=== PATIENT | female | born 1975 | race Caucasian/White ===

== ENCOUNTER 2020-11-09 12:07 | Emergency (ER) | payer OTHER ==
[~2020-11-09] VITALS: Ht 165.1 cm; Wt 77.1 kg
[2020-11-09 13:40] LABS: BASOPHILS # (AUTO) 0.1 K/uL (0.00-0.22); BASOPHILS % (AUTO) 0.6 % (0.0-2.0); HEMATOCRIT 39.7 % (36-48); HEMOGLOBIN 13.1 g/dL (12.0-16.0); LYMPHOCYTES % (AUTO) 15.1 % (20.5-51.1); MEAN CORPUSCULAR HEMOGLOBIN 29 pg (27-31); MEAN CORPUSCULAR HGB CONC 33 g/dL (33-37); MEAN CORPUSCULAR VOLUME 88.2 fL (80-94); MONOCYTES # (AUTO) 1.4 K/uL (0.8-1.0); MONOCYTES % (AUTO) 6.9 % (1.7-9.3); NEUTROPHILS # (AUTO) 15.4 K/uL (1.8-7.7); NEUTROPHILS % (AUTO) 77.4 % (42.2-75.2); PLATELET COUNT (AUTO) 624 K/uL (140-450); WHITE BLOOD COUNT (AUTO) 19.9 K/uL (4.8-10.8)
[2020-11-09 13:59] VITALS: BP 118/62
--- NOTE | 2020-11-09 14:05 | NUR ---
PATIENT PLACED IN ER-13 BY [facility] AT THIS TIME.
[2020-11-09 14:09] LABS: ALBUMIN 3.4 g/dL (3.4-5.0); ANION GAP 16.5 (8-16); ASPARTATE AMINOTRANSFERASE 28 U/L (15-37); CARBON DIOXIDE 24.1 mmol/L (21-32); CHLORIDE 100 mmol/L (98-107); CREATININE 0.7 mg/dL (0.6-1.3); GFR ARICAN-AMERICAN 117 mL/min (>90); GLUCOSE 105 mg/dL (74-106); POTASSIUM 4.6 mmol/L (3.5-5.1); SALICYLATE < 2.8 mg/dL (2.8-20.0); SODIUM SERUM 136 mmol/L (136-145); TOTAL BILIRUBIN 0.5 mg/dL (0.0-1.0); UREA NITROGEN, BLOOD 17 mg/dL (7-18)
[2020-11-09 14:10] LABS: ACETAMINOPHEN < 0.5 ug/ml (10-30)
--- NOTE | 2020-11-09 14:10 | NUR ---
SPOKE TO MARILIN @ [phone] REGARDING PATIENT, STATES THAT PATIENT WAS FOUND LAYING ON FLOOR UNCONSCIOUS AND WAS DISCHARGED FROM [place] FOR COVID PNEUMONIA RECENTLY. DR LOPEZ MADE AWARE
--- NOTE | 2020-11-09 16:25 | NUR ---
Gave report to DEANNA Madrigal for pending admission to [facility] for subacute stroke with Dr. Deutsch.
--- NOTE | 2020-11-09 16:27 | NUR ---
Patient to be transferred to [facility]. Is being transferred due to equipment or services not available at this facility. Receiving facility has accepting physician and available space. ER physician has signed transfer form. Patient or responsible green party has agreed to transfer and signed form. Patient belongings inventoried and will be sent with patient. Copy of nursing notes, lab reports, EKG, Physicians Orders and X-rays to be sent with patient. Report called to DEANNA Madrigal at receiving facility. [facility] ambulance service has been called for transfer. ETA is 25minutes.
[2020-11-09 17:07] LABS: PROTHROMBIN TIME 10.3 secs (10.8-13.4)
== END 2020-11-09 16:27 | disposition swing bed, planned readmission (89) ==
LOC: MED 12:07
DX: I63.512 Cerebral infarction due to unspecified occlusion or stenosis of left middle cerebral artery (principal); U07.1 COVID-19; J12.82 Pneumonia due to coronavirus disease 2019
CPT/HCPCS: 36415; 70450; 70496; 70498; 71045; 80053; 84484; 85025; 85610; 85730; 93005; 99291; G0480; G0482; Q9967

== ENCOUNTER 2021-12-30 20:01 | Emergency (ER) | payer OTHER ==
[~2021-12-30] VITALS: Ht 157.5 cm; Wt 70.8 kg
--- NOTE | 2021-12-30 20:01 | NUR ---
PT [facility]. TAKEN TO BED 9
[2021-12-30 20:05] VITALS: BP 147/71
--- NOTE | 2021-12-30 20:10 | NUR ---
patient ara from home c/o aloc s/p szx that lasted 3mins at around 1930. witnessed by son. EMS arrived and pt was postictal. patient has right facial droop, right sided weakness in the arms and legs, difficulty expressing self, aphasic. pt AAOx3- confused. per family pt is not on any antiszx medication and pt normally aaox4 and has the right sided defecits. pmh: cva 2020 (right sided weakness), hyperlipidemia, szx, depression nka
--- NOTE | 2021-12-30 20:14 | NUR ---
Dr. Marroquin examining patient.
--- NOTE | 2021-12-30 20:22 | NUR ---
CODE BRAIN INITIATED PER DR. LOPEZ. RADIOLOGY NOTIFIED
--- NOTE | 2021-12-30 20:24 | NUR ---
PT TAKEN TO CT
--- NOTE | 2021-12-30 20:34 | NUR ---
PT RETURN FROM CT
--- NOTE | 2021-12-30 20:45 | NUR ---
ATTEMPTED TO START AN IV TWICE. NO SUCCESS AT THIS TIME.
--- NOTE | 2021-12-30 20:47 | NUR ---
TELE NEURO SET UP FOR PATIENT IN BED 9. AWATING FOR MD CALL.
--- NOTE | 2021-12-30 20:49 | NUR ---
TELENEURO REQUEST INITIATED PER DR. LOPEZ. HEAD CT FAXED
[2021-12-30 20:56] LABS: BASOPHILS # (AUTO) 0.1 K/uL (0.00-0.22); BASOPHILS % (AUTO) 0.8 % (0.0-2.0); EOSINOPHILS # (AUTO) 0.1 K/uL (0-0.4); EOSINOPHILS % (AUTO) 0.7 % (0.0-4.0); HEMOGLOBIN 13.3 g/dL (12.0-16.0); LYMPHOCYTES # (AUTO) 2.3 K/uL (2.5-16.5); LYMPHOCYTES % (AUTO) 28.6 % (20.5-51.1); MEAN CORPUSCULAR HEMOGLOBIN 32 pg (27-31); MEAN CORPUSCULAR HGB CONC 34 g/dL (33-37); MEAN CORPUSCULAR VOLUME 93.4 fL (80-94); MONOCYTES # (AUTO) 0.4 K/uL (0.8-1.0); MONOCYTES % (AUTO) 5.3 % (1.7-9.3); NEUTROPHILS # (AUTO) 5.1 K/uL (1.8-7.7); NEUTROPHILS % (AUTO) 64.6 % (42.2-75.2); PLATELET COUNT (AUTO) 194 K/uL (140-450); RED BLOOD CELL COUNT(AUTO) 4.17 MIL/uL (4.20-5.40); RED CELL DISTRIBUTION WIDTH 13.5 % (11.6-13.7); WHITE BLOOD COUNT (AUTO) 7.9 K/uL (4.8-10.8)
[2021-12-30 21:18] LABS: ALBUMIN 3.8 g/dL (3.4-5.0); ANION GAP 16.4 (8-16); CARBON DIOXIDE 21.2 mmol/L (21-32); CREATININE 0.9 mg/dL (0.6-1.3); POTASSIUM 3.6 mmol/L (3.5-5.1); TOTAL BILIRUBIN 0.3 mg/dL (0.0-1.0)
[2021-12-30] MEDS ORDERED: levETIRAcetam 1,000 MG in NACL 0.9% 100 ML IV ONE (21:30)
--- NOTE | 2021-12-30 21:30 | NUR ---
ermd regino at bedside speaking and reassessing patient.
[2021-12-30] MEDS ORDERED: levETIRAcetam 100 MG/ML VIAL IV ONE (21:39)
--- NOTE | 2021-12-30 21:42 | NUR ---
patient ambulated to the bathroom with a steady gait and urine cup for collection
--- NOTE | 2021-12-30 21:52 | NUR ---
patient back from bathroom. attached to the monitor, safety measures are in place, and will continue to monitor patient.
[2021-12-30] MEDS ORDERED: KEP500 PO (22:18)
--- NOTE | 2021-12-30 22:40 | NUR ---
IV removed, catheter intact and site benign. Applied folded 4x4 gauze and tape to stop bleeding.
[2021-12-30 22:45] VITALS: BP 119/57
--- NOTE | 2021-12-30 22:45 | NUR ---
Patient discharged with v/s stable. Written and verbal after care instructions given and explained. Patient alert, oriented and verbalized understanding of instructions. Ambulatory with steady gait. All questions addressed prior to discharge. ID band removed. Patient advised to follow up with PMD. Rx of kedmitry given. Patient educated on indication of medication including possible reaction and side effects. Opportunity to ask questions provided and answered.
== END 2021-12-30 22:45 | disposition home or self-care (01) ==
LOC: MED 20:01
DX: R56.9 Unspecified convulsions (principal); G83.84 Todd's paralysis (postepileptic); F32.9 Major depressive disorder, single episode, unspecified; E78.5 Hyperlipidemia, unspecified; Z86.73 Personal history of transient ischemic attack (TIA), and cerebral infarction without residual deficits; Z79.899 Other long term (current) drug therapy
CPT/HCPCS: 36415; 70450; 71045; 80053; 81002; 81025; 84484; 85025; 93005; 96365; 99291; J1953; Q0092